=== PATIENT | male | born 1940 | race Caucasian/White ===

== ENCOUNTER 2018-03-21 05:44 | Emergency (ER) | payer MEDICARE ==
[~2018-03-21] VITALS: Ht 180.3 cm; Wt 83.9 kg
[2018-03-21] MEDS ORDERED: KEFLEX500 MG PO (07:22)
== END 2018-03-21 07:57 | disposition home or self-care (01) ==
LOC: ED 05:44
PROC: 0HQ1XZZ Repair Face Skin, External Approach (ICD-10-PCS; principal; 2018-03-21)
DX: S09.90XA Unspecified injury of head, initial encounter (principal); S02.5XXA Fracture of tooth (traumatic), initial encounter for closed fracture; S01.511A Laceration without foreign body of lip, initial encounter; I10 Essential (primary) hypertension; Z23 Encounter for immunization; W01.10XA Fall on same level from slipping, tripping and stumbling with subsequent striking against unspecified object, initial encounter
CPT/HCPCS: 12011; 70150; 90471; 90715; 99283